=== PATIENT | male | born 1990 | race Caucasian/White ===

== ENCOUNTER 2024-11-20 04:07 | Day surgery (SDC) | payer OTHER ==
[2024-11-20] VITALS (216 sets, daily range): BP systolic 85–128; BP diastolic 44–87
[~2024-11-20] VITALS: Ht 188 cm; Wt 67.6 kg
[2024-11-20] MEDS ORDERED: PHENYLEPHRINE HCL 10 MG in DEXTROSE 5% 250 ML IV SCH (07:20)
[2024-11-20] MEDS ORDERED: DEXMEDETOMIDINE HCL IN SODIUM 100 ML IV SCH (07:20)
[2024-11-20] MEDS ORDERED: SODIUM CHLORIDE 0.9% 1,000 ML IV PRN ×3 (07:30→19:00)
[2024-11-20] MEDS ORDERED: SCOPOLAMINE 1.5 MG DIS TD PRN (07:30)
[2024-11-20] MEDS ORDERED: LACTATED RINGER'S 1,000 ML IV PRN ×2 (07:30→10:00)
[2024-11-20] MEDS ORDERED: cloNIDine HCL 0.1 MG/TAB PO PRN (07:30)
[2024-11-20] MEDS ORDERED: ALBUTEROL SULFATE 2.5 MG VIAL IN PRN (07:30)
[2024-11-20] MEDS ORDERED: FAMOTIDINE 20 MG/TAB PO PRN (07:30)
[2024-11-20] MEDS ORDERED: PANTOPRAZOLE SODIUM Sesquihydr 40 MG/TAB PO PRN (07:30)
[2024-11-20] MEDS ORDERED: diazePAM 5 MG/TAB PO PRN ×2 (07:30→08:30)
[2024-11-20] MEDS ORDERED: CYANOCOBALAMIN 500 MCG/TAB ( B12) PO PRN (07:30)
[2024-11-20] MEDS ORDERED: ASCORBIC ACID 4,000 MG in SODIUM CHLORIDE 0.9% 1,000 ML IV SCH (08:00)
[2024-11-20 09:24] LABS: ALBUMIN 4.3 g/dL (3.2-5.0); BILIRUBIN, TOTAL 0.6 mg/dL (0.2-1.3); POTASSIUM 4.8 mmol/l (3.5-5.1); TOTAL PROTEIN 6.7 g/dL (6.3-8.2)
[2024-11-20 09:31] LABS: EOS% 6.2 % (0-8); HEMATOCRIT 45.7 % (39.0-50.0); HEMOGLOBIN 14.5 g/dl (14.0-18.0); IMMATURE GRANULOCYTES 0.2 % (0.0-5.0); LYMPH% 31.5 % (15-41); MEAN CORPUSCULAR HGB 29.2 pG CALC (26.0-32.0); MEAN CORPUSCULAR HGB CONC 31.7 g/dL CAL (32.0-36.0); MONO% 10.4 % (2-13); NEUT# 2.92 thou/uL (1.82-7.42); NEUT% 50.7 % (42-76); RED BLOOD COUNT 4.97 mill/uL (4.70-6.10)
[2024-11-20] MEDS ORDERED: THIAMINE HCL 100 MG/ML 2ML VIAL IV PRN (10:00)
[2024-11-20] MEDS ORDERED: LIDOCAINE HCL 1% (10MG/ML) 100 MG/10 ML MDV VT PRN ×2 (10:00)
[2024-11-20] MEDS ORDERED: MIDAZOLAM HCL 2 MG/2 ML VIAL IV PRN ×3 (10:00→13:55)
[2024-11-20] MEDS ORDERED: ONDANSETRON HCl 4 MG/2 ML SDV IV PRN ×3 (10:00→19:00)
[2024-11-20] MEDS ORDERED: ROCURONIUM BROMIDE 10 MG/ML 5 ML VIAL IV PRN (10:00)
[2024-11-20] MEDS ORDERED: SUCCINYLCHOLINE CHLORIDE 20 MG/ML 10ML VIAL IV PRN (10:00)
[2024-11-20] MEDS ORDERED: STERILE WATER FOR IRRIGATION 1,000 ML BTL IR PRN (10:00)
[2024-11-20] MEDS ORDERED: cloNIDine HYDROCHLORIDE 100 MCG/ML 10 ML INJ IV PRN (10:00)
[2024-11-20] MEDS ORDERED: diazePAM 5 MG/TAB VT PRN (10:00)
[2024-11-20] MEDS ORDERED: PROPOFOL 100 ML IV PRN (10:00)
[2024-11-20] MEDS ORDERED: cloNIDine HCL 0.1 MG/TAB VT PRN (10:00)
[2024-11-20] MEDS ORDERED: OCTREOTIDE ACETATE 100 MCG/VIAL SDV SC PRN (10:00)
[2024-11-20] MEDS ORDERED: MAGNESIUM SULFATE HEPTAHYDRATE 100 ML IV PRN (10:00)
[2024-11-20] MEDS ORDERED: DiphenhydrAMINE HCL 50 MG/ML SDV IV PRN (10:00)
[2024-11-20] MEDS ORDERED: PROPOFOL 10 MG/ML 100ML VIAL IV PRN (10:00)
[2024-11-20] MEDS ORDERED: LIDOCAINE HCL 1% (10MG/ML) 100 MG/10 ML MDV IV PRN (10:00)
[2024-11-20] MEDS ORDERED: NALTREXONE HCL 50 MG/TAB VT PRN (10:00)
[2024-11-20] MEDS ORDERED: KLONOPIN2 MG PO (14:09)
[2024-11-20] MEDS ORDERED: CLONIDINE0.1 MG PO (14:09)
[2024-11-20] MEDS ORDERED: NALTREXONE50 MG PO (14:09)
[2024-11-20] MEDS ORDERED: ACETAMINOPHEN 1,000 MG/100 ML VIAL IV PRN (19:00)
[2024-11-20] MEDS ORDERED: PROMETHAZINE HCL 25 MG in SODIUM CHLORIDE 0.9% 50 ML IV PRN (19:00)
[2024-11-20] MEDS ORDERED: ACETAMINOPHEN 500 MG TAB PO PRN (19:00)
[2024-11-20] MEDS ORDERED: PROMETHAZINE HCL 12.5 MG in SODIUM CHLORIDE 0.9% 50 ML IV PRN (19:00)
[2024-11-20] MEDS ORDERED: KETOROLAC TROMETHAMINE 30 MG/ML SDV IV PRN (19:00)
[2024-11-20] MEDS ORDERED: HALOPERIDOL LACTATE 5 MG/ML SDV IV PRN (19:00)
[2024-11-20] MEDS ORDERED: PATIENT' OWN MED CONTROLLED 1 EA DOSE IV PRN (21:00)
[2024-11-20] MEDS ORDERED: cloNIDine HCL 0.1 MG/TAB PO SCH (23:00)
[2024-11-20] MEDS ORDERED: clonazePAM 1 MG/TAB PO PRN (23:00)
[2024-11-21 02:50] VITALS: BP 124/61
[2024-11-21] MEDS ORDERED: NALTREXONE HCL 50 MG/TAB PO SCH (04:00)
[2024-11-21] MEDS ORDERED: clonazePAM 1 MG/TAB PO PRN ×2 (04:00→08:00)
[2024-11-21] MEDS ORDERED: cloNIDine HCL 0.1 MG/TAB PO PRN (04:00)
[2024-11-21 05:28] LABS: BASO% 0.2 % (0-3); HEMATOCRIT 42.9 % (39.0-50.0); HEMOGLOBIN 14.4 g/dl (14.0-18.0); IMMATURE GRANULOCYTES 0.2 % (0.0-5.0); LYMPH% 14.6 % (15-41); MEAN CELL VOLUME 88.8 fL CALC (80.0-100.0); MEAN CORPUSCULAR HGB 29.8 pG CALC (26.0-32.0); MEAN CORPUSCULAR HGB CONC 33.6 g/dL CAL (32.0-36.0); MONO% 3.3 % (2-13); NEUT# 5.14 thou/uL (1.82-7.42); NEUT% 81.7 % (42-76); RED BLOOD COUNT 4.83 mill/uL (4.70-6.10); RED CELL DISTRI WIDTH 12.8 % (11.5-15.5)
[2024-11-21 05:46] LABS: ALBUMIN 3.7 g/dL (3.2-5.0); BILIRUBIN, TOTAL 0.7 mg/dL (0.2-1.3); CREATININE 0.8 mg/dL (0.7-1.3); MAGNESIUM 2.2 mg/dL (1.6-2.3)
[2024-11-21 05:58] LABS: POTASSIUM 3.8 mmol/l (3.5-5.1)
[2024-11-21] MEDS ORDERED: cloNIDine HCL 0.1 MG/TAB PO SCH (08:00)
[2024-11-21] MEDS ORDERED: ACETAMINOPHEN 325 MG/TAB PO SCH (08:00)
[2024-11-21] MEDS ORDERED: PANTOPRAZOLE SODIUM Sesquihydr 40 MG/TAB PO SCH (08:00)
[2024-11-21] MEDS ORDERED: ACETAMINOPHEN 500 MG TAB PO PRN (09:00)
[2024-11-21] MEDS ORDERED: Cholecalciferol 2,000 UNIT/TAB PO PRN (09:00)
[2024-11-21] MEDS ORDERED: MAGNESIUM OXIDE 400 MG/TAB PO PRN (09:00)
[2024-11-21] MEDS ORDERED: cloNIDine HCL 0.1 MG/TAB PO ONE (09:10)
[2024-11-21] MEDS ORDERED: NALTREXONE HCL 50 MG/TAB PO ONE (09:10)
[2024-11-21 09:52] VITALS: BP 123/53
== END 2024-11-21 15:15 | disposition home or self-care (01) | DRG 897 ==
LOC: ANR 04:07 → MS2 04:24 → ANR 09:00 → MS2 16:10 → ANR 11-21 15:15
PROVIDERS: ATTEND Anesthesiology
DX: F11.20 Opioid dependence, uncomplicated (principal)
CPT/HCPCS: J1100; J1200; J2354; J2405; J2704; J3475; J3490